=== PATIENT | male | born 1935 | race Caucasian/White ===

== ENCOUNTER 2018-10-03 09:34 | Inpatient (IN) | payer MEDICARE, OTHER, SELFPAY ==
[2018-10-03] VITALS (14 sets, daily range): BP systolic 90–141; BP diastolic 36–90; PULSE 66–125; RESP 15–18; TEMP 36.4–37.1; O2SAT 93–99; BMI 25.0; BMI 26.7
--- NOTE | 2018-10-03 10:05 | RAD_ITS ---
STUDY: X-RAY CHEST REASON FOR EXAM: Male, 83 years old. Shortness of breath. Increasing weakness. TECHNIQUE: Single AP portable view of the chest. COMPARISON: None. FINDINGS: EKG electrodes are seen. Hyperinflation. Blunting of the left cartilage thinning angle with minimal increased markings at the left lung base. Normal size heart. Normal mediastinum and albino. Normal visualized pulmonary arteries. There is atherosclerotic calcification of the aortic arch with tortuosity. Normal visualized thoracic spine. Normal visualized ribs, clavicles, and shoulders. There is no demonstrated abnormality of the visualized soft tissue structures of the upper abdomen. RAD/Chest 1 View (Portable) IMPRESSION: Hyperinflation. Blunting of the left costophrenic angle with mild increased markings at the left lung base suggestive of atelectasis. Electronically Signed: Shane Ogden, at 11:10 EDT , Service support ,
--- NOTE | 2018-10-03 10:05 | EKG12_ITS ---
Test Reason : CP Blood Pressure : / mmHG Vent. Rate : 076 BPM Atrial Rate : 075 BPM P-R Int : 000 ms QRS Dur : 114 ms QT Int : 382 ms P-R-T Axes : 000 036 035 degrees QTc Int : 429 ms Atrial fibrillation Abnormal ECG Confirmed by CARRIE KIRKPATRICK, MARZENA ([id number]), news video editor JAVIER KUMAR ([id number]) on 10/07/2018 6:30:56 AM Referred By: Sherron Martel Confirmed By:MARZENA BUTLER MD
[2018-10-03] MEDS: 0.9% Normal Saline 1,000 ML 150 ML IV (10:15)
[2018-10-03 10:22] LABS: Absolute Neutrophil Count 3.6 X10^3/uL (2.0-7.7); Basophil# 0.03 X10^3/uL; Basophil% 0.5 % (0-1); Eosinophil# 0.18 X10^3/uL; Eosinophils% 3.3 % (0-5); Hematocrit 43.8 % (40-54); Hemoglobin 15.1 g/dl (13.0-16.5); Lymphocyte % 23.5 % (19-41); Mean Corp Hgb Conc 34.5 g/gl (32-36); Mean Corpuscular Hgb 32.3 pg (27.0-32.0); Mean Corpuscular Volume 93.6 fL (80-94); Monocyte# 0.42 X10^3/uL; Monocyte% 7.6 % (0-10); Neutrophil # 3.59 X10^3/uL (2.7-7.7); Neutrophil % 64.9 % (47-70); Platelet Count 194 K/mm3 (150-450); RBC Distribution Width CV 12.9 % (11.6-14.6); RBC Distribution Width SD 43.8 fl (35.1-43.9); Red Blood Count 4.68 M/mm3 (4.6-6.2); White Blood Count 5.5 K/mm3 (4.4-11.0)
[2018-10-03 10:24] LABS: POSITIVE COUNT NO; POSITIVE DIFFERENTIAL NO; POSITIVE MORPHOLOGY NO
[2018-10-03 10:42] LABS: Anion Gap 9 (5-15); BUN 21 mg/dL (7-18); BUN/Creat Ratio 17.8 RATIO (10-20); Calcium,Total 8.7 mg/dL (8.5-10.1); Chloride 103 mmol/L (98-107); Creatinine, Serum 1.18 mg/dL (0.70-1.30); EST Glomerular Filtration Rate 63 mL/min (>60); Est Glom Filt Rate - Afr Amer 76 mL/min (>60); Estimated Creatinine Clearance 58.68 ml/min; Glucose 116 mg/dL (74-106); Potassium 3.6 mmol/L (3.5-5.1); Sodium Level 143 mmol/L (136-145); Thyroid Stim Hormone (TSH) 1.63 uIU/mL (0.358-3.74)
[2018-10-03 10:48] LABS: BNP,B-Type NATRIURETIC PEPTIDE 182.4 pg/mL (0-100)
--- NOTE | 2018-10-03 11:14 | ED.VISSUMM ---
- ER Visit Summary Date of Service: 10/03/18 Chief Complaint: Short of breath, weakness History of Present Illness: The patient is a 83 M with increasing shortness of breath and generalized weakness for the past 1 month. Last night he had a 15-minute episode of left shoulder pain that is currently resolved. Past history significant for Alzheimer's, GERD, hypertension, BPH, kidney stones. Physical Examination: Blood pressure is 90/36, temperature 97.6, heart rate 87, respiratory rate 16, pulse ox 93% on room air. Patient sitting upright in bed no acute distress. Heart is slightly irregular. Lung sounds are clear. Abdomen is soft and nontender. Test Results: EKG reveals atrial fibrillation with a rate of 76 bpm. No sign of acute ischemia. Both he and at bedside deny any history of A. fib. CBC is unremarkable. Chemistry studies normal. Troponin is 0.146. BNP 182. TSH is 1.63. Portable chest x-ray shows hyperinflation. Emergency Department Course and Treatment: Patient is given IV fluids. At this time blood pressure is 119/79, heart rate 79, respiratory rate 16. He is ordered a dose of Lovenox and will be given p.o. aspirin. Treatment Plan: [] Disposition: Admit Impression: 1. New onset A. fib 2. Elevated troponin This note was generated with [employer] dictation software. It may contain incorrect words, spelling, and punctuation that were not noted in review of the chart prior to signing ED Disposition - Plan for ED Patient: Referrals: Ruel Ivey MD [Primary Care Provider] -
[2018-10-03] MEDS: Enoxaparin 100 MG/ML Syringe 90 MG SC ×2 (11:32→21:57)
[2018-10-03] MEDS: Aspirin 81 MG TAB.CHEW 324 MG PO (11:32)
--- NOTE | 2018-10-03 12:25 | EKG12_ITS ---
Test Reason : CP ADMISSION Blood Pressure : / mmHG Vent. Rate : 066 BPM Atrial Rate : 072 BPM P-R Int : 000 ms QRS Dur : 114 ms QT Int : 420 ms P-R-T Axes : 000 027 013 degrees QTc Int : 440 ms Atrial fibrillation Abnormal ECG Confirmed by CARRIE KIRKPATRICK, MARZENA ([id number]), editor magazine JAVIER KUMAR ([id number]) on 10/07/2018 7:05:13 AM Referred By: Sherron Martel Confirmed By:MARZENA BUTLER MD
--- NOTE | 2018-10-03 12:25 | ECHOD_ITS ---
Reason For Study: Afib, Aflutter Procedure This was a 2D Doppler, Color Flow transthoracic echocardiogram. Exam performed portable in patient room. Left Ventricle Normal LV size. Mild concentric left ventricular hypertrophy. The estimated ejection fraction is 55 %. Unable to assess diastolic dysfunction due to arrhythmia. No regional wall motion abnormalities noted. Right Ventricle Normal RV size. Normal systolic function. Atria Normal left atrium. Normal right atrium. Bubble contrast study negative for right to left interatrial shunt. Mitral Valve Normal mitral valve. Mild (1+) eccentric mitral valve insufficiency. Tricuspid Valve Normal tricuspid valve. Mild tricuspid valve insufficiency. Pulmonary artery systolic pressure is 20 mmHg. Aortic Valve Trisinus/trileaflet aortic valve. Mild diffuse aortic valve thickening. Mild (1+) aortic valve insufficiency. Pulmonic Valve Normal pulmonic valve. Mild (1+) pulmonic valve insufficiency. Great Vessels Normal aortic root. The pulmonary artery is normal size. Normal inferior vena cava. Pericardium/Pleural No pericardial effusion. Medication Performed a rapid injection of agitated mix of 9 cc saline and 1cc air to assess for atrial septal defect. MMode/2D Measurements & Calculations LVIDd: 3.9 cm IVSd: 1.2 cm Ao root diam: 4.1 cm LVIDs: 2.9 cm LVPWd: 1.3 cm RVDd: 3.8 cm FS: 26.5 % LAV(MOD-bp): 57.7 ml LVAd ap4: 26.1 cm2 SV(MOD-sp4): 38.1 ml LAV(MOD-bp) Indexed: 25.8 ml/m2 EDV(MOD-sp4): 73.0 ml LAV(MOD-sp2): 63.6 ml EDV(sp4-el): 76.0 ml LAV(MOD-sp4): 51.9 ml LVAs ap4: 16.6 cm2 ESV(MOD-sp4): 34.8 ml ESV(sp4-el): 35.8 ml EF(MOD-sp4): 52.2 % EF(sp4-el): 52.9 % SV(sp4-el): 40.3 ml LA A4 area: 19.1 cm2 LA dimension(2D): 4.5 cm RA A4 area: 17.3 cm2 Doppler Measurements & Calculations MV E max remi: 88.3 cm/sec Ao V2 max: 130.4 cm/sec LV V1 max: 82.3 cm/sec Ao max P.8 mmHg LV V1 max P.7 mmHg Ao V2 mean: 92.6 cm/sec Ao mean P.7 mmHg Ao V2 VTI: 23.5 cm PA V2 max: 74.2 cm/sec TR max remi: 204.8 cm/sec TR max P.8 mmHg Interpretation Summary Normal LV size. Mild concentric left ventricular hypertrophy. The estimated ejection fraction is 55 %. Unable to assess diastolic dysfunction due to arrhythmia. Mild tricuspid valve insufficiency. Ordering Physician: Suad Martel Referring Physician: Ruel Ivey Performed By: Lili Barron, CHIP, RVT
--- NOTE | 2018-10-03 13:49 | HP.PCM_ITS ---
Problem List (1) Atrial fibrillation Status: Acute (2) Elevated troponin Status: Acute (3) Paresthesia of left foot Status: Chronic Comment: following lumbar surgery....also with Atrophy of the left calf. 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 Comment: following lumbar surgery (11) Late onset Alzheimer's disease without behavioral disturbance Status: Chronic History of Present Illness Date of Admission: 10/03/18 Chief Complaint: chest pain The patient is a 83 year old M with a past medical history of hypertension, late onset Alzheimer's disease, chronic back pain with history of lumbar surgery resulting in atrophy of the left calf and numbness of the left foot, nephro lithiasis, eczema, GERD, nasal polyp, BPH and prior smoking hx ( quit in 1983) who presented to the ED c/o being awoken from sleep last night with pain in the left shoulder and numbness in both hands. The pain lasted 15 minutes and then went away without tx. He additionally complains of feeling short of breath and this has been gradually increasing over several months. He has been getting short of breath when climbing the basement steps for at least 1 year per his . Recently he has been complaining of being weak and was unable to walk in the grocery store yesterday. Denies fevers, chills, nausea, diarrhea, cough, burning with urination. 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 He denies any history of coronary artery disease and also denies any history of VTE. He has been feeling lightheaded recently. Vital signs of presentation to the emergency room are temperature 97.6, pulse rate 87, blood pressure 90/36, respiratory rate 16 and he was 93% saturated on room air. Blood pressure improved with fluid bolus. CBC is unremarkable. BMP shows a potassium of 3.6 and a BUN of 21 with a creatinine of 1.18. Random blood sugar was 116. Troponin was elevated at 0.146 initially and the second troponin is 0.145. BNP is 182 and his TSH was normal at 1.63. Chest x-ray shows no cardiomegaly, no infiltrates, no pleural effusions and no pulmonary vascular congestion. There is hyperinflation present. EKG shows atrial fibrillation with controlled ventricular response and no suspicious ST or T wave changes. He is on metoprolol 50 mg p.o. twice daily as an outpatient. He is being admitted to a monitored bed on PCU and the chest pain protocol has been initiated. Will consult Dr. Forbes to participate in ma mitzi. Past Medical History Past Medical History (Chronic Problems): Chronic Problems Paresthesia of left foot (Chronic) following lumbar surgery....also with Atrophy of the left calf. 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) Allergies No Known Allergies Allergy (Verified 10/03/18 09:34) Home Medications: Ambulatory Orders Medication Instructions Recorded Aspirin [Aspirin EC] 81 mg PO DAILY 10/03/18 Donepezil HCl [Aricept] 10 mg PO QHS 10/03/18 Finasteride 5 mg PO DAILY 10/03/18 Fluticasone 0.05% [Flonase Nasal 2 spray NASAL DAILY 10/03/18 [place]] Hydrochlorothiazide 50 mg PO DAILY 10/03/18 Ibuprofen 1 tab PO TID PRN 10/03/18 Lisinopril 40 mg PO BID 10/03/18 Metoprolol Tartrate [Lopressor 50 mg PO BID 10/03/18 (beta vivian)] Polyethylene Glycol 3350 [Miralax] 17 gm PO DAILY 10/03/18 Ranitidine [Zantac] 150 mg PO QHS 10/03/18 Terazosin HCl 5 mg PO DAILY 10/03/18 cycloBENZAPRine HCl [Flexeril] 10 mg PO TID PRN PRN 10/03/18 Surgical History: - - lumbar laminectomy at L5, excision of throat polyps Psychiatric History: No pertinent psych hx Lives: Spouse/ Significant Other Smoking Status: Former smoker - quit in 1983 Tobacco Use: Non-smoker Alcohol: None Drugs: None - *Family History Sibling History Items: - - Alzheimer's disease and 2 of his brothers Maternal History Items: High Cholesterol, Hypertension Paternal History Items: Cancer - Laryngeal cancer in his father Review of Systems Constitutional: Reports: Weakness. Denies: Anorexia, Chills, Fever, Weight Change Eyes: Reports: - - Recently had bilateral cataract extraction HEENT: Denies: Head Aches, Sinus Congestion, Sinus Drainage, Sore Throat Cardiovascular: Reports: Light Headedness. Denies: Chest Pain, Chest Pressure, Chest Tightness, Edema, Orthopnea - Sleeps on one pillow at night and does not wake up short of breath, Palpitations, Paroxysmal Noc. Dyspnea, Syncope Respiratory: Denies: Cough, Shortness of breath at rest, Sputum production Gastrointestinal: Denies: Abdominal Pain, Diarrhea, Nausea, Vomiting Genitourinary: Denies: Dysuria Musculoskeletal: Denies: Joint Pain, Joint Tenderness, Neck Pain Skin: Denies: Jaundice, Rash, Wounds Neurological: Reports: Balance problems, Numbness - Chronic numbness in the left foot and numbness in both hands last evening with the onset of left shoulder pain.. Denies: Slurred speech, Focal weakness, Tingling, Tremor, Seizures Psychiatric: Denies: Anxiety, Depression, Homicidal Ideations, Suicidal Ideations Hematologic/ Lymphatic: Denies: Easy Bruising, Easy Bleeding, Hx of blood clot VTE Information - Inpt Only VTE Present on Admission: No VTE Mechan Device Prophylaxis: SCD's, Knee High MARY CAMREN Hose VTE Pharm Prophylaxis ordered?: No Reason prophylaxis not ordered:: Treatment Not Indicated - Patient was started on full dose Lovenox for atrial fibrillation Patient Problems: Active and Suspected Problems Atrial fibrillation (Acute) Elevated troponin (Acute) - Physical Exam General: Alert, Cooperative, No apparent distress, Well developed, Well nourished HEENT: Atraumatic, PERRLA, EOMI, Normocephalic Oral: Dry Mucosa, - - Poor dentition Neck: Supple, No JVD, Negative Carotid Bruits, No Nuchal Rigidity, Trachea Midline Lungs: Clear to auscultation Cardiovascular: Normal S1, Normal S2, No murmurs, Irregular Rate - irregular rhythm with a controlled VR, No rub noted, No Gallop Abdomen: Bowel Sounds Present, Soft, Non Tender, Non-Distended Extremities: No clubbing, No cyanosis, No edema, Diminished Peripheral Pulses, - - there is chronic atrophy of the Left lower leg due to nerve damage related to lumbar spine dz with hx of an L5 lumbar laminectomy Skin: No rashes, No breakdown Neurological: Cranial nerves II-XII grossly intact, Neuro grossly intact Vital Signs Temp Pulse Resp BP Pulse Ox 97.7 F L 72 18 139/86 H 97 10/03/18 12:42 10/03/18 12:42 10/03/18 12:42 10/03/18 12:42 10/03/18 13:41 Oxygen Delivery Method Room Air Weight: 208 lb 5.389 oz Body Mass Index (BMI) 26.7 Laboratory Tests Past 24 Hrs 10/03/18 10/03/18 10/03/18 10:12 10:12 10:12 WBC 5.5 RBC 4.68 Hgb 15.1 Hct 43.8 MCV 93.6 MCH 32.3 H MCHC 34.5 RDW 12.9 RDW Differential 43.8 Plt Count 194 MPV 10.0 Immature Gran % (Auto) 0.200 Neut % (Auto) 64.9 Lymph % (Auto) 23.5 [place] % (Auto) 7.6 Eos % (Auto) 3.3 Baso % (Auto) 0.5 Absolute Neuts (auto) 3.6 Absolute Lymphs (auto) 1.30 Total Counted Not Reportable Sodium 143 Potassium 3.6 Chloride 103 Carbon Dioxide 31.0 Anion Gap 9 BUN 21 H Creatinine 1.18 Estim Creat Clear Calc 58.68 Est GFR (MDRD) Af Amer 76 Est GFR (MDRD) Non-Af 63 BUN/Creatinine Ratio 17.8 Glucose 116 H Calcium 8.7 Magnesium Troponin I 0.146 H B-Natriuretic Peptide 182.4 H TSH 1.63 10/03/18 10/03/18 10:12 12:57 WBC RBC Hgb Hct MCV MCH MCHC RDW RDW Differential Plt Count MPV Immature Gran % (Auto) Neut % (Auto) Lymph % (Auto) [place] % (Auto) Eos % (Auto) Baso % (Auto) Absolute Neuts (auto) Absolute Lymphs (auto) Total Counted Sodium Potassium Chloride Carbon Dioxide Anion Gap BUN Creatinine Estim Creat Clear Calc Est GFR (MDRD) Af Amer Est GFR (MDRD) Non-Af BUN/Creatinine Ratio Glucose Calcium Magnesium 2.0 Troponin I 0.145 H B-Natriuretic Peptide TSH Assessment/Plan All Active Problems Atrial fibrillation (Acute) Elevated troponin (Acute) Impressions 1. new onset AF........may not be real recent 2. Left shoulder pain with numbness in both hands... Cardiac? or cervical disc dz or stenosis....kleber in light of the hx of lumbar disease? 3. generalized weakness and lightheadedness the past few days......suspect related to dehydration 4. clinical dehydration 5. HTN 6. Late onset Alzheimer's disease without behavioral disturbance 7. GERD 8. Chronic paresthesias left foot secondary to prior lumbar laminectomy and nerve damage 9. Atrophy of the left distal lower extremity secondary to prior nerve damage she had lumbar laminectomy 10. BPH Admit to a monitored bed on PCU ASA 81 mg PO daily SL NTG 0.4 mg PRN chest pain Serial Cardiac Enzymes Stat EKG PRN CP Chest XRAY Consult Dr. Forbes to participate in management Lovenox 90 mg subcu every 12 hours Echocardiogram today Venous ultrasounds of both lower extremities to rule out VTE as etiology of new onset atrial fibrillation Continue metoprolol 50 mg twice daily for rate control continue home medications except HCTZ.......will hold and hydrate Check orthostatics Code Visit Inpatient E&M: 94845 Init Hosp L3
--- NOTE | 2018-10-03 14:36 | VDLE_ITS ---
Reason For Study: Shortness of breath RIGHT LEFT Rt CFV and SFJ not visualized due to cath in GSV is normal. AM 10/04/18. CFV is compressible, spontaneous, phasic, GSV is normal. competent, and demonstrates normal FV is compressible, spontaneous, phasic, augmentation. competent and demonstrates normal FV is compressible, spontaneous, phasic, augmentation. competent and demonstrates normal POP V is compressible, spontaneous, phasic, augmentation. competent and demonstrates normal POP V is compressible, spontaneous, phasic, augmentation. competent and demonstrates normal T/P Trunk is compressible. augmentation. PTV is compressible. T/P Trunk is compressible. RT PerV is compressible. PTV is compressible. Procedure LT PerV is compressible. Exam performed portable in patient room. A preliminary report was called and/or faxed to PCU. Interpretation Summary Deep veins of the lower extremities are bilaterally patent and compressible segmentally. There is no evidence of deep vein thrombosis on either side. Valvular competence appears intact within the proximal deep venous systems bilaterally. The greater saphenous veins appear bilaterally patent and compressible segmentally. The right common femoral vein and sapheno-femoral junction were not visualized. Ordering Physician: Suad Martel Referring Physician: Ruel Ivey Performed By: Qiana Carpio RVT
--- NOTE | 2018-10-03 14:41 | CT_ITS ---
STUDY: CT BRAIN WITHOUT CONTRAST REASON FOR EXAM: Male, 83 years old. Confusion. Hypertension. RADIATION DOSAGE (If Supplied By Facility): CTDIvol = ( 44.99 ) mGy, DLP = ( 880.47 ) mGycm TECHNIQUE: Transaxial CT imaging of the brain was performed without administration of intravenous contrast material. Individualized dose optimization techniques were used for this CT. COMPARISON: No relevant priors. FINDINGS: There is no definite acute intracranial abnormality. There is diffuse mild symmetric atrophy. There is atrophy of the posterior fossa structures. There is diffuse small vessel ischemic disease of the white matter. There are stable bilateral lacunar infarcts. There is no definite acute infarct. There is no bleed. There is no gross mass, mass effect, or midline shift. There is no acute abnormality of the skull. No fractures. Grossly normal orbits. Moderate to marked diffuse chronic sinusitis. CT/Brain/Head without Contrast IMPRESSION: Chronic age related changes and atrophy. No acute intracranial abnormality. Electronically Signed: Howard Malone MD at 17:23 EDT , Service support ,
[2018-10-03] MEDS: 0.9% Normal Saline 1,000 ML 100 ML IV (16:19)
--- NOTE | 2018-10-03 16:54 | PCM.CONS.C ---
Reason for Consult Date of Consultation: 10/03/18 Reason for Consultation: Chest pain and abnormal cardiac enzymes History of Present Illness: The patient is a 83 year old M with a past medical history of hypertension, who presented to the ED c/o being awoken from sleep last night with pain in the left shoulder and numbness in both hands. The pain lasted 15 minutes and then went away without tx. He additionally complains of feeling short of breath and this has been gradually increasing over several months. He has been getting short of breath when climbing the basement steps for at least 1 year per his . Recently he has been complaining of being weak and was unable to walk in the grocery store yesterday. Denies fevers, chills, nausea, diarrhea, cough, burning with urination. 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 He denies any history of coronary artery disease and also denies any history of VTE. He has been feeling lightheaded recently. He presented to the emergency room and he was noted to be stable but blood work which was done demonstrated mildly abnormal troponin. EKG shows atrial fibrillation with controlled ventricular response and no suspicious ST or T wave changes. He is on metoprolol 50 mg p.o. twice daily as an outpatient. He was admitted to the progressive care unit and cardiology was consulted for further evaluation and management. Past Medical History Allergies/Adverse Reactions: Allergies No Known Allergies Allergy (Verified 10/03/18 09:34) Home Medications: Ambulatory Orders Medication Instructions Recorded Aspirin [Aspirin EC] 81 mg PO DAILY 10/03/18 Donepezil HCl [Aricept] 10 mg PO QHS 10/03/18 Finasteride 5 mg PO DAILY 10/03/18 Fluticasone 0.05% [Flonase Nasal 2 spray NASAL DAILY 10/03/18 Echo] Hydrochlorothiazide 50 mg PO DAILY 10/03/18 Ibuprofen 1 tab PO TID PRN 10/03/18 Lisinopril 40 mg PO BID 10/03/18 Metoprolol Tartrate [Lopressor 50 mg PO BID 10/03/18 (beta vivian)] Polyethylene Glycol 3350 [Miralax] 17 gm PO DAILY 10/03/18 Ranitidine [Zantac] 150 mg PO QHS 10/03/18 Terazosin HCl 5 mg PO DAILY 06/03/19 cycloBENZAPRine HCl [Flexeril] 10 mg PO BID PRN PRN 10/03/18 Past Medical History (Chronic Problems): Chronic Problems Paresthesia of left foot (Chronic) following lumbar surgery....also with Atrophy of the left calf. 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 Denies: Fever, Night Sweats HEENT: Denies: Vision Change Cardiovascular: Reports: Chest Discomfort at Rest, Shortness of Breath. Denies: Chest Discomfort, Orthopnea, PND, Peripheral Edema, Palpitations, Lightheadedness, Dizziness, Near Syncope, Syncope Respiratory: Denies: Cough, Sputum Production, Hemoptysis Gastrointestinal: Denies: Hematemesis, Hematochezia, Melena Genitourinary: Denies: Dysuria, Hematuria Muscoloskeletal: Denies: Myalgias Skin: Denies: Rash Neurological: Denies: Dizziness Psychiatric: Denies: Anxiety Endocrine: Denies: Unexplained Weight Loss Hematologic/ Lymphatic: Denies: Anemia Subjectve: Pleasant man in no apparent distress Objective: Vital Signs Temp Pulse Resp BP Pulse Ox 97.7 F L 79 18 141/90 H 95 10/03/18 16:33 10/03/18 16:33 10/03/18 16:33 10/03/18 16:33 10/03/18 16:33 Oxygen Delivery Method Room Air Weight: 208 lb 5.389 oz Body Mass Index (BMI) 26.7 General: Awake, Alert, Oriented x 3 HEENT: PERRL, EOMI, Sclera Non Icteric Neck: Supple, Good ROM, No Lymph Node Enlargement Lungs: Clear to auscultation Cardiovascular: Irregular Rhythm, Normal S1, Normal S2, No Murmurs, No Rubs, No Gallops Vascular: No Carotid Bruits, Normal Femoral Pulses, Normal Radial Pulses, Normal Dorsalis Pedal Pulse, Normal Posterior Tibial Pulses Abdomen: Bowel Sounds Present, Soft, Non Tender, No HSM, No Organomegaly Extremities: No Cyanosis, No Clubbing, No edema Musculoskeletal: No Erythema Skin: No Rashes Lymphatic: No Lymph Node Enlargement Neurological: No Focal Motor or Sensory Deficit Psych/Mental Status: Appropriate 10/03/18 10:12: WBC 5.5, RBC 4.68, Hgb 15.1, Hct 43.8, MCV 93.6, MCH 32.3 H, MCHC 34.5, RDW 12.9, RDW Differential 43.8, Plt Count 194, MPV 10.0, Immature Gran % (Auto) 0.200, Neut % (Auto) 64.9, Lymph % (Auto) 23.5, [place] % (Auto) 7.6, Eos % (Auto) 3.3, Baso % (Auto) 0.5, Absolute Neuts (auto) 3.6, Total Counted Not Reportable 10/03/18 10:12: Sodium 143, Potassium 3.6, Chloride 103, Carbon Dioxide 31.0, Anion Gap 9, BUN 21 H, Creatinine 1.18, Est GFR (MDRD) Af Amer 76, Est GFR (MDRD) Non-Af 63, BUN/Creatinine Ratio 17.8, Glucose 116 H, Calcium 8.7, Troponin I 0.146 H 10/03/18 10:12: B-Natriuretic Peptide 182.4 H 10/03/18 10:12: Magnesium 2.0 10/03/18 12:57: Troponin I 0.145 H Rhythm: EKG: Atrial fibrillation with a controlled ventricular response rate no acute changes ECHO: Estimated ejection fraction of 55% with no obvious wall motion abnormalities Assessment/Plan 1. Chest pain Patient presents with chest discomfort which woke him up from sleep. The above is associated with a mildly abnormal cardiac troponin enzymes and this is concerning. I would recommend that we pursue the above especially in light of his age with a cardiac catheterization. The risk benefits and alternatives have been explained to him he understands and agrees to proceed. We will continue aspirin and beta-vivian We will load up with clopidogrel at this time 2. Hypertension Blood pressure appears to be fairly well controlled on the current medical therapy 3. Atrial fibrillation The duration of the above is unclear but his response rate is controlled I would wait until he has undergone the cardiac catheterization before deciding on anticoagulation. He however appears to have an elevated enough chads score to warrant long-term anticoagulation. 4. Shortness of breath He does have evidence of mild congestive heart failure likely secondary to the atrial fibrillation. His echocardiogram demonstrated preserved ejection fraction. Thank you for allowing me to participate in the care of your patient. Please don't hesitate to call if any issues arise
--- NOTE | 2018-10-03 17:01 | CON.PCM_ITS ---
Reason for Consult Date of Consultation: 10/03/18 Reason for Consultation: Chest pain and abnormal cardiac enzymes History of Present Illness: The patient is a 83 year old M with a past medical history of hypertension, who presented to the ED c/o being awoken from sleep last night with pain in the left shoulder and numbness in both hands. The pain lasted 15 minutes and then went away without tx. He additionally complains of feeling short of breath and this has been gradually increasing over several months. He has been getting short of breath when climbing the basement steps for at least 1 year per his . Recently he has been complaining of being weak and was unable to walk in the grocery store yesterday. Denies fevers, chills, nausea, diarrhea, cough, burning with urination. 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 He denies any history of coronary artery disease and also denies any history of VTE. He has been feeling lightheaded recently. He presented to the emergency room and he was noted to be stable but blood work which was done demonstrated mildly abnormal troponin. EKG shows atrial fibrillation with controlled ventricular response and no suspicious ST or T wave changes. He is on metoprolol 50 mg p.o. twice daily as an outpatient. He was admitted to the progressive care unit and cardiology was consulted for further evaluation and management. Past Medical History Allergies/Adverse Reactions: Allergies No Known Allergies Allergy (Verified 10/03/18 09:34) Home Medications: Ambulatory Orders Medication Instructions Recorded Aspirin [Aspirin EC] 81 mg PO DAILY 10/03/18 Donepezil HCl [Aricept] 10 mg PO QHS 10/03/18 Finasteride 5 mg PO DAILY 10/03/18 Fluticasone 0.05% [Flonase Nasal 2 spray NASAL DAILY 10/03/18 [place]] Hydrochlorothiazide 50 mg PO DAILY 10/03/18 Ibuprofen 1 tab PO TID PRN 10/03/18 Lisinopril 40 mg PO BID 10/03/18 Metoprolol Tartrate [Lopressor 50 mg PO BID 10/03/18 (beta vivian)] Polyethylene Glycol 3350 [Miralax] 17 gm PO DAILY 10/03/18 Ranitidine [Zantac] 150 mg PO QHS 10/03/18 Terazosin HCl 5 mg PO DAILY 06/03/19 cycloBENZAPRine HCl [Flexeril] 10 mg PO BID PRN PRN 10/03/18 Past Medical History (Chronic Problems): Chronic Problems Paresthesia of left foot (Chronic) following lumbar surgery....also with Atrophy of the left calf. 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 Denies: Fever, Night Sweats HEENT: Denies: Vision Change Cardiovascular: Reports: Chest Discomfort at Rest, Shortness of Breath. Denies: Chest Discomfort, Orthopnea, PND, Peripheral Edema, Palpitations, Lightheadedness, Dizziness, Near Syncope, Syncope Respiratory: Denies: Cough, Sputum Production, Hemoptysis Gastrointestinal: Denies: Hematemesis, Hematochezia, Melena Genitourinary: Denies: Dysuria, Hematuria Muscoloskeletal: Denies: Myalgias Skin: Denies: Rash Neurological: Denies: Dizziness Psychiatric: Denies: Anxiety Endocrine: Denies: Unexplained Weight Loss Hematologic/ Lymphatic: Denies: Anemia Subjectve: Pleasant man in no apparent distress Objective: Vital Signs Temp Pulse Resp BP Pulse Ox 97.7 F L 79 18 141/90 H 95 10/03/18 16:33 10/03/18 16:33 10/03/18 16:33 10/03/18 16:33 10/03/18 16:33 Oxygen Delivery Method Room Air Weight: 208 lb 5.389 oz Body Mass Index (BMI) 26.7 General: Awake, Alert, Oriented x 3 HEENT: PERRL, EOMI, Sclera Non Icteric Neck: Supple, Good ROM, No Lymph Node Enlargement Lungs: Clear to auscultation Cardiovascular: Irregular Rhythm, Normal S1, Normal S2, No Murmurs, No Rubs, No Gallops Vascular: No Carotid Bruits, Normal Femoral Pulses, Normal Radial Pulses, Normal Dorsalis Pedal Pulse, Normal Posterior Tibial Pulses Abdomen: Bowel Sounds Present, Soft, Non Tender, No HSM, No Organomegaly Extremities: No Cyanosis, No Clubbing, No edema Musculoskeletal: No Erythema Skin: No Rashes Lymphatic: No Lymph Node Enlargement Neurological: No Focal Motor or Sensory Deficit Psych/Mental Status: Appropriate 10/03/18 10:12: WBC 5.5, RBC 4.68, Hgb 15.1, Hct 43.8, MCV 93.6, MCH 32.3 H, MCHC 34.5, RDW 12.9, RDW Differential 43.8, Plt Count 194, MPV 10.0, Immature Gran % (Auto) 0.200, Neut % (Auto) 64.9, Lymph % (Auto) 23.5, [place] % (Auto) 7.6, Eos % (Auto) 3.3, Baso % (Auto) 0.5, Absolute Neuts (auto) 3.6, Total Counted Not Reportable 10/03/18 10:12: Sodium 143, Potassium 3.6, Chloride 103, Carbon Dioxide 31.0, Anion Gap 9, BUN 21 H, Creatinine 1.18, Est GFR (MDRD) Af Amer 76, Est GFR (MDRD) Non-Af 63, BUN/Creatinine Ratio 17.8, Glucose 116 H, Calcium 8.7, Troponin I 0.146 H 10/03/18 10:12: B-Natriuretic Peptide 182.4 H 10/03/18 10:12: Magnesium 2.0 10/03/18 12:57: Troponin I 0.145 H Rhythm: EKG: Atrial fibrillation with a controlled ventricular response rate no acute c hanges ECHO: Estimated ejection fraction of 55% with no obvious wall motion abnormalities Assessment/Plan 1. Chest pain * Patient presents with chest discomfort which woke him up from sleep. The above is associated with a mildly abnormal cardiac troponin enzymes and this is concerning. I would recommend that we pursue the above especially in light of his age with a cardiac catheterization. The risk benefits and alternatives have been explained to him he understands and agrees to proceed. We will continue aspirin and beta-vivian * We will load up with clopidogrel at this time * 2. Hypertension * Blood pressure appears to be fairly well controlled on the current medical therapy * 3. Atrial fibrillation * The duration of the above is unclear but his response rate is controlled I would wait until he has undergone the cardiac catheterization before deciding on anticoagulation. He however appears to have an elevated enough chads score to warrant long-term anticoagulation. * 4. Shortness of breath * He does have evidence of mild congestive heart failure likely secondary to the atrial fibrillation. * His echocardiogram demonstrated preserved ejection fraction. * Thank you for allowing me to participate in the care of your patient. Please don't hesitate to call if any issues arise
[2018-10-03] MEDS: Clopidogrel Bisulfate 300 MG Tablet PO (17:45)
[2018-10-03] MEDS: Metoprolol Tartrate 50 MG Tablet PO (21:56)
[2018-10-03] MEDS: Famotidine 20 MG Tablet PO (21:56)
[2018-10-03] MEDS: Donepezil HCl 10 MG Tablet PO (21:56)
[2018-10-04] VITALS (14 sets, daily range): BP systolic 119–147; BP diastolic 74–98; PULSE 71–105; RESP 16; TEMP 36.5–36.8; O2SAT 93–95
[2018-10-04 01:30] LABS: Bacteria 0 SEEN /hpf (None Seen); Mucous, Urine 0 SEEN /hpf (<or=2+); Squamous Epithelial Cells - UA 0 SEEN /hpf (0-5); White Blood Cells 0 SEEN /hpf (0-5)
[2018-10-04 01:33] LABS: Color, Urine Yellow (Yellow); Glucose, Dipstick Normal (Normal); Ketone-Dipstick Negative (Negative); Leukocyte Esterase-Dipstick Negative /ul (Negative); Nitrite-Dipstick Negative (Negative); Occult Blood-Urine 150 /ul (Negative); Protein-Dipstick Negative (Negative); Specific Gravity, Urine 1.015 (1.002-1.030); Urine Bilirubin Dipstick Negative (Negative); Urine Clarity Clear (Clear); Urine Urobilinogen Normal (Normal)
[2018-10-04 01:43] LABS: Red Blood Cells-Urine 0-5 SEEN /hpf (0-5)
[2018-10-04] MEDS: Metoprolol Tartrate 50 MG Tablet PO (05:40)
[2018-10-04] MEDS: Aspirin E.C. 81 MG Tablet PO (05:41)
[2018-10-04] MEDS: Lisinopril 40 MG Tablet PO (05:41)
[2018-10-04] MEDS: 0.9% Normal Saline 1,000 ML 15 ML IV (05:41)
[2018-10-04] MEDS: Clopidogrel Bisulfate 75 MG Tablet PO (05:41)
[2018-10-04 05:45] LABS: Absolute Lymphocyte Count 1.53 X10^3/ul (0.83-4.51); Absolute Neutrophil Count 2.5 X10^3/uL (2.0-7.7); Basophil# 0.04 X10^3/uL; Basophil% 0.8 % (0-1); Eosinophil# 0.28 X10^3/uL; Eosinophils% 5.9 % (0-5); Hematocrit 43.9 % (40-54); Lymphocyte # 1.53 X10^3/ul (4.0); Lymphocyte % 32.3 % (19-41); Mean Corp Hgb Conc 34.2 g/gl (32-36); Mean Corpuscular Hgb 32.3 pg (27.0-32.0); Mean Corpuscular Volume 94.4 fL (80-94); Mean Platelet Vol. 9.8 fl (6.2-12.0); Monocyte# 0.38 X10^3/uL; Neutrophil % 52.8 % (47-70); Platelet Count 180 K/mm3 (150-450); RBC Distribution Width CV 12.9 % (11.6-14.6); RBC Distribution Width SD 44.1 fl (35.1-43.9); Red Blood Count 4.65 M/mm3 (4.6-6.2); White Blood Count 4.7 K/mm3 (4.4-11.0)
[2018-10-04 05:47] LABS: POSITIVE COUNT NO; POSITIVE DIFFERENTIAL NO; POSITIVE MORPHOLOGY NO
--- NOTE | 2018-10-04 05:55 | EKG12_ITS ---
Test Reason : AM EKG Blood Pressure : / mmHG Vent. Rate : 080 BPM Atrial Rate : 085 BPM P-R Int : 000 ms QRS Dur : 106 ms QT Int : 388 ms P-R-T Axes : 000 040 017 degrees QTc Int : 447 ms Atrial fibrillation with premature ventricular or aberrantly conducted complexes Abnormal ECG Confirmed by CARRIE KIRKPATRICK, MARZENA ([id number]), writer editor JAVIER KUMAR ([id number]) on 10/07/2018 7:08:06 AM Referred By: Sherron Martel Confirmed By:MARZENA BUTLER MD
[2018-10-04 06:03] LABS: AST(SGOT) 13 U/L (15-37); Alanine Aminotransfer ALT/SGPT 17 U/L (16-61); Albumin, Serum 2.9 g/dL (3.2-5.0); Alkaline Phosphatase 55 U/L (45-117); Anion Gap 6 (5-15); BUN 16 mg/dL (7-18); BUN/Creat Ratio 16.6 RATIO (10-20); Bilirubin, Direct 0.17 mg/dL (0.00-0.30); Calcium,Total 8.5 mg/dL (8.5-10.1); Chloride 107 mmol/L (98-107); Creatinine, Serum 0.96 mg/dL (0.70-1.30); EST Glomerular Filtration Rate 80 mL/min (>60); Est Glom Filt Rate - Afr Amer 96 mL/min (>60); Estimated Creatinine Clearance 70.16 ml/min; Globulin 2.7 g/dL (2.2-4.2); Glucose 91 mg/dL (74-106); Potassium 3.8 mmol/L (3.5-5.1); Protein, Total 5.6 g/dL (6.4-8.2); Sodium Level 145 mmol/L (136-145)
[2018-10-04 06:05] LABS: International Normalized Ratio 1.2; Prothrombin Time (Protime)PT. 14.6 SECONDS (11.7-14.9)
[2018-10-04 06:06] LABS: Partial Thromboplast Time 42.2 Seconds (24.1-36.2)
--- NOTE | 2018-10-04 07:57 | PN.CARD_ITS ---
Subjectve: Patient seen and evaluated. Appears to be doing well. Underwent cardiac catheterization this morning. Objective: Vital Signs Temp Pulse Resp BP Pulse Ox 98.0 F 85 16 147/90 H 94 10/04/18 03:30 10/04/18 07:05 10/04/18 03:30 10/04/18 05:34 10/04/18 03:30 Oxygen Delivery Method Room Air Weight: 208 lb 5.389 oz Body Mass Index (BMI) 26.7 Orthostatic Vital Signs Start: 10/03/18 17:27 Freq: 0600 Status: Active Protocol: Activity Type Activity Date Activity User E-Sign Co-Sign Detail Recorded Client Recorded Date Recorded By Document 10/04/18 05:34 CM [id number] 10/04/18 05:37 CM 10/04/18 05:34 Orthostatic Vitals Standing -Blood Pressure (90/60-120/80) 129/84 H -Extremity Use Right Arm -Pulse Rate (60-100) 98 Sitting -Blood Pressure (90/60-120/80) 136/79 H -Extremity Use Right Arm -Pulse Rate (60-100) 105 H Lying -Blood Pressure (90/60-120/80) 147/90 H -Extremity Use Right Arm -Pulse Rate (60-100) 74 Intake and Output for Last 24 Hours 10/02/18 10/03/18 10/04/18 23:59 23:59 23:59 Intake Total 1830 / 1830 440 / 440 Balance 1830 / 1830 440 / 440 General: Awake, Alert, Oriented x 3 HEENT: PERRL, EOMI, Sclera Non Icteric Neck: Supple, Good ROM, No Lymph Node Enlargement Lungs: Clear to auscultation Cardiovascular: Irregular Rhythm, Normal S1, Normal S2, No Murmurs, No Rubs, No Gallops Vascular: No Carotid Bruits, Normal Femoral Pulses, Normal Radial Pulses, Normal Dorsalis Pedal Pulse, Normal Posterior Tibial Pulses Abdomen: Bowel Sounds Present, Soft, Non Tender, No HSM, No Organomegaly Extremities: No Cyanosis, No Clubbing, No edema Musculoskeletal: No Erythema Skin: No Rashes Lymphatic: No Lymph Node Enlargement Neurological: No Focal Motor or Sensory Deficit Psych/Mental Status: Appropriate 10/03/18 10:12: WBC 5.5, RBC 4.68, Hgb 15.1, Hct 43.8, MCV 93.6, MCH 32.3 H, MCHC 34.5, RDW 12.9, RDW Differential 43.8, Plt Count 194, MPV 10.0, Immature Gran % (Auto) 0.200, Neut % (Auto) 64.9, Lymph % (Auto) 23.5, [place] % (Auto) 7.6, Eos % (Auto) 3.3, Baso % (Auto) 0.5, Absolute Neuts (auto) 3.6, Total Counted Not Reportable 10/03/18 10:12: Sodium 143, Potassium 3.6, Chloride 103, Carbon Dioxide 31.0, Anion Gap 9, BUN 21 H, Creatinine 1.18, Est GFR (MDRD) Af Amer 76, Est GFR (MDRD) Non-Af 63, BUN/Creatinine Ratio 17.8, Glucose 116 H, Calcium 8.7, Troponin I 0.146 H 10/03/18 10:12: B-Natriuretic Peptide 182.4 H 10/03/18 10:12: Magnesium 2.0 10/03/18 12:57: Troponin I 0.145 H 10/03/18 16:20: Troponin I 0.126 H 10/04/18 01:20: Urine Color Yellow, Urine Clarity Clear, Urine pH 7.0, Ur Specific Stamps 1.015, Urine Protein Negative, Urine Glucose (UA) Normal, Urine Ketones Negative, Urine Occult Blood 150 H, Urine Nitrite Negative, Urine Bilirubin Negative, Urine Urobilinogen Normal, Ur Leukocyte Esterase Negative, Urine RBC 0-5 SEEN, Urine WBC 0 SEEN 10/04/18 05:25: Sodium 145, Potassium 3.8, Chloride 107, Carbon Dioxide 32.0, Anion Gap 6, BUN 16, Creatinine 0.96, Est GFR (MDRD) Af Amer 96, Est GFR (MDRD) Non-Af 80, BUN/Creatinine Ratio 16.6, Glucose 91, Calcium 8.5, Total Bilirubin 0.80, Direct Bilirubin 0.17 10/04/18 05:25: WBC 4.7, RBC 4.65, Hgb 15.0, Hct 43.9, MCV 94.4 H, MCH 32.3 H, MCHC 34.2, RDW 12.9, RDW Differential 44.1 H, Plt Count 180, MPV 9.8, Immature Gran % (Auto) 0.200, Neut % (Auto) 52.8, Lymph % (Auto) 32.3, [place] % (Auto) 8.0, Eos % (Auto) 5.9 H, Baso % (Auto) 0.8, Absolute Neuts (auto) 2.5, Total Counted Not Reportable 10/04/18 05:25: PT 14.6, INR 1.2, APTT 42.2 H Medical Necessity - Tobacco Use Smoking Status: Former smoker Tobacco Use: Non-smoker Assessment/Plan 1. Chest pain * Patient presents with chest discomfort which woke him up from sleep. 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 He also had preserved ejection fraction. Based on the above angiographic findings it does not appear that this is responsible for his chest pain. * We will continue to manage him medically and discharge him and follow him as an outpatient. 2. Hypertension * Blood pressure appears to be fairly well controlled on the current medical therapy * 3. Atrial fibrillation * Will recommend anticoagulation with apixaban upon discharge 4. Shortness of breath * He does have evidence of mild congestive heart failure likely secondary to the atrial fibrillation. * His echocardiogram demonstrated preserved ejection fraction. * Thank you for allowing me to participate in the care of your patient. Please don't hesitate to call if any issues arise patient can follow-up with me in 4 to 6 weeks in my office.
--- NOTE | 2018-10-04 08:32 | CL.D_ITS ---
Patient Name: ROEL CHAU Study Date: 10/04/2018 Performing: Elvis Forebs MD Ht: 74 inches 188 cm : 1935 Wt: 209.7 lbs 95 kg Age: 83 Gender: male BSA: 2.22 PROCEDURE(S) PERFORMED [id number] CLINICAL PROFILE AND INDICATIONS Indications: Suspected CAD Heart Failure: NYHA Class: 2, Newly Diagnosed: Yes, Heart Failure Type: Diastolic Stress/Imaging Stress/Image Study Performed: No CAD Presentations: Unstable angina. CONCLUSIONS Mild CAD RECOMMENDATIONS Medical therapy DESCRIPTION OF PROCEDURE The patient arrived to the procedure lab. The risks and benefits of the procedure as well as a full d escription of our services here and current unavailability of surgical backup were fully explained to the patient and/or their significant other prior to the catheterization. The Timeout was completed, verifying the correct patient and procedure. The patient's procedural site was prepped and draped in the usual fashion. Local anesthetic was given subcutaneously to right groin region with Lidocaine 2%. Using a modified Seldinger technique, arterial access was obtained via the right femoral artery, a 5 Fr sheath was inserted. Left Coronary Artery selective angiography was performed in multiple views u sing a 5 Fr. JL4 catheter. Right Coronary Artery selective angiography was then performed in multiple views using a 5 Fr. 3DRC (Omero) catheter. Left Ventriculography was performed in MARROQUIN projection using a 5 Fr. Pigtail catheter. LV to AO pullback pressures were then recorded.Contrast was injected through the sheath and the Right Iliac and Femoral artery were assessed for possible daniel sure device.The arterial sheath was pulled and a Mynx closure device was deployed for hemostasis CORONARY ANGIOGRAPHY DOMINANCE: Right Dominant LEFT HEART ASSESSMENT Left Ventricular Ejection Fraction: by LV Gram 60 % Normal LV wall motion Normal Left Ventricular systolic function LEFT MAIN: Angiographically normal LEFT ANTERIOR DESCENDING ARTERY: Mild luminal irregularities less than 30% CIRCUMFLEX ARTERY: No significant disease noted RIGHT CORONARY ARTERY: Mild luminal irregularities less than 30% COMPLICATIONS No Complications PROCEDURE MEDICATIONS Versed 1 mg IV Oxygen: 2 L/min via nasal cannula SUMMARY OF HEMODYNAMIC DATA Time AIR REST ECG 07:21:22 AO 154/94 (118) SA 07:38:12 LV 155/8, 10 07:46:01 LV 151/7, 11 07:46:08 LV 150/8, 12 07:46:42 LVp 146/6, 10 07:46:46 AO 139/86 (111) 07:46:51 Signed By Elvis Forbes MD On 10/04/2018 8:31:54 AM Elvis Forbes MD
[2018-10-04] MEDS: Finasteride 5 MG Tablet PO (09:07)
[2018-10-04] MEDS: Famotidine 20 MG Tablet PO (09:07)
--- NOTE | 2018-10-04 10:08 | CASEMGMT ---
[facility] assessment: Face to Face with patient for initial transition planning/care coordination assessment. [facility] introduced self and role at [facility], pt voices understanding and consents to assessment at this time. Pt is lying in bed in no distress at this time. Pt is A/Ox4 at this time and answers all questions appropriately at this time. Pt's ex- is at bedside during assessment and assists with questions at this time. Care providers, pharmacy, and demographics verified at this time. PCP: Loni Specialists: Pt states no current specialists. Preferred Pharmacy: [facility] Insurance: [facility] A/B, G[employer] life Prescription Benefit: [employer] Living Will/HPOA: Pt states has LW but not HPOA and is aware that it is not on file at [facility] at this time. LNOK: Lilia Thomson, ex- Living Arrangements: Pt lives with ex-, Lilia, in 1 story home with 1 step in and states no concerns at home at this time. Pt states is independent with ADL's. Transportation: Pt states drives self and states no transportation concerns at this time. DME/HHC: Pt states has a cane, grab bars, and shower chair. Pt states no need for any further DME at this time. Pt state no hx of HHC or SNF in the past. Pt states no concerns with going home at time of discharge. Pt is retired. Pt states does not smoke or drink ETOH. Pt states no further questions/concerns/needs at this time. CM to follow for any further discharge planning/needs. Advised pt to ask for CM if any further questions/concerns/needs arise, voices understanding. Pt Goal: Home Plan: [place] [facility]
--- NOTE | 2018-10-04 13:10 | NURSING ---
Bedrest complete. Walked patient in hallway. Tolerated well. Dressing C/D/I
--- NOTE | 2018-10-04 13:53 | PCM.DC ---
- Discharge Diagnoses Current Active Problems: Current Active and Chronic Problems Atrial fibrillation (Acute) Elevated troponin (Acute) Paresthesia of left foot (Chronic) following lumbar surgery....also with Atrophy of the left calf. 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) You will use the following diet at home:: Cardiac - low fat and low salt Your food should be the consistency of: Regular Your liquids should be the consistency of: Regular/Thin Discharge Activity: Return to Normal Activity Call your doctor if your incision/area has: Continuous Slow Oozing, Sudden Increased Bleeding, Increased Redness Call your doctor if you observe: Fever of 101 or Higher, Shortness of breath, Dizziness, Fainting spells, Swelling in the ankles, Chest pain Instructions: What Is Atrial Flutter/Atrial Fibrillation?, Discharge Instructions for Atrial Fibrillation, Apixaban Oral tablet Additional Instructions: 1. The heart catheterization shows that there is no significant coronary artery disease. I do not know why you had pain in the left shoulder...you may have slept on it wrong and pinched a nerve. If it happens again talk to your PCP. 2. You have developed a problem with the rhythm of your heart called atrial fibrillation. your heart beats irregularly and this is a risk factor for strokes. Therefore you are being started on a blood thinner called Apixaban to help prevent strokes. You will take this medication every 12 hours. If you get a cut you will bleed more so hold pressure on it for 10 minutes with no peeking. You will no longer be able to take Motrin because it can cause bleeding in your stomach when you are on a blood thinner. You may take Acetaminophen or Tylenol for pain. It is OK to continue to take 1 baby aspirin a day. 3. Dr. Forbes wants you to be on Lasix because you had some fluid build up in the lungs.........Lasix is a water pill and you will take it once a day in the morning. You can STOP the HCTZ ( hydrocholrothiazide). Your doctor should check some lab in one week to make sure the potassium and the kidney function are within normal limits. 4. I started you on Flomax and you will take this once a day at bedtime. this will help with the prostate problem. Allergies/Adverse Reactions: Allergies No Known Allergies Allergy (Verified 10/03/18 09:34) Medications to take at Discharge Aspirin [Aspirin EC] 81 mg PO DAILY 10/03/18 Donepezil HCl [Aricept] 10 mg PO QHS 10/03/18 Finasteride 5 mg PO DAILY 10/03/18 Fluticasone 0.05% [Flonase Nasal [place]] 2 spray NASAL DAILY 10/03/18 Ibuprofen 1 tab PO TID PRN 10/03/18 Lisinopril 40 mg PO BID 10/03/18 Metoprolol Tartrate [Lopressor (beta vivian)] 50 mg PO BID 10/03/18 Polyethylene Glycol 3350 [Miralax] 17 gm PO DAILY 10/03/18 Ranitidine [Zantac] 150 mg PO QHS 10/03/18 Terazosin HCl 5 mg PO DAILY 10/03/18 cycloBENZAPRine HCl [Flexeril] 10 mg PO BID PRN PRN 10/03/18 Apixaban [Eliquis] 5 mg PO BID #60 tablet 10/04/18 Furosemide [Lasix] 40 mg PO DAILY #30 tablet 10/04/18 Tamsulosin HCl [Flomax] 0.4 mg PO QHS #30 capsule 10/04/18 The following prescriptions were given: Furosemide [Lasix] 40 mg PO DAILY #30 tablet Tamsulosin HCl [Flomax] 0.4 mg PO QHS #30 capsule Apixaban [Eliquis] 5 mg PO BID #60 tablet Primary Care Physician: Ruel Ivey MD [Primary Care Provider] - Please follow up with your Primary Care Physician in: 5-7 days Test Results: Test results from this visit will be discussed in further detail at your follow-up appointment, if applicable. Please Follow Up With: Elvis Forbes MD When: 4-6 weeks
--- NOTE | 2018-10-04 14:10 | PCM.DC.SUM ---
Discharge Date and Diagnosis - Problem List Patient Problems: Active and Suspected Problems Diastolic CHF (Acute) Date of Admission: 10/03/18 Date of Discharge: 10/04/18 - Primary Discharge Diagnosis Active and Suspected Problems Left shoulder pain with elevated troponin and paresthesias in both hands Diastolic CHF (Acute) - mild Atrial fibrillation (Acute) Elevated troponin (Acute) - Secondary Discharge Diagnosis Chronic Problems Paresthesia of left foot (Chronic) following lumbar surgery....also with Atrophy of the left calf. 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 Blunting of the left costophrenic angle with mild increased markings at the left lung base suggestive of atelectasis. Electronically Signed: Shane Ogden at 11:10 EDT , Service support , Brain CT 10/03/18 14:41 IMPRESSION: Chronic age related changes and atrophy. No acute intracranial abnormality. Electronically Signed: Howard Malone MD at 17:23 EDT , Service support , Laboratory Results - last 24 hr 10/03/18 10/04/18 10/04/18 16:20 01:20 05:25 WBC RBC Hgb Hct MCV MCH MCHC RDW RDW Differential Plt Count MPV Immature Gran % (Auto) Neut % (Auto) Lymph % (Auto) [place] % (Auto) Eos % (Auto) Baso % (Auto) Absolute Neuts (auto) Absolute Lymphs (auto) Total Counted PT INR APTT Sodium 145 Potassium 3.8 Chloride 107 Carbon Dioxide 32.0 Anion Gap 6 BUN 16 Creatinine 0.96 Estim Creat Clear Calc 70.16 Est GFR (MDRD) Af Amer 96 Est GFR (MDRD) Non-Af 80 BUN/Creatinine Ratio 16.6 Glucose 91 Calcium 8.5 Total Bilirubin 0.80 Direct Bilirubin 0.17 AST 13 L ALT 17 Alkaline Phosphatase 55 Troponin I 0.126 H Total Protein 5.6 L Albumin 2.9 L Globulin 2.7 Urine Color Yellow Urine Clarity Clear Urine pH 7.0 Ur Specific [place] 1.015 Urine Protein Negative Urine Glucose (UA) Normal Urine Ketones Negative Urine Occult Blood 150 H Urine Nitrite Negative Urine Bilirubin Negative Urine Urobilinogen Normal Ur Leukocyte Esterase Negative Urine RBC 0-5 SEEN Urine WBC 0 SEEN Ur Squamous Epith Cells 0 SEEN Urine Bacteria 0 SEEN Urine Mucus 0 SEEN 10/04/18 10/04/18 05:25 05:25 WBC 4.7 RBC 4.65 Hgb 15.0 Hct 43.9 MCV 94.4 H MCH 32.3 H MCHC 34.2 RDW 12.9 RDW Differential 44.1 H Plt Count 180 MPV 9.8 Immature Gran % (Auto) 0.200 Neut % (Auto) 52.8 Lymph % (Auto) 32.3 [place] % (Auto) 8.0 Eos % (Auto) 5.9 H Baso % (Auto) 0.8 Absolute Neuts (auto) 2.5 Absolute Lymphs (auto) 1.53 Total Counted Not Reportable PT 14.6 INR 1.2 APTT 42.2 H Sodium Potassium Chloride Carbon Dioxide Anion Gap BUN Creatinine Estim Creat Clear Calc Est GFR (MDRD) Af Amer Est GFR (MDRD) Non-Af BUN/Creatinine Ratio Glucose Calcium Total Bilirubin Direct Bilirubin AST ALT Alkaline Phosphatase Troponin I Total Protein Albumin Globulin Urine Color Urine Clarity Urine pH Ur Specific [place] Urine Protein Urine Glucose (UA) Urine Ketones Urine Occult Blood Urine Nitrite Urine Bilirubin Urine Urobilinogen Ur Leukocyte Esterase Urine RBC Urine WBC Ur Squamous Epith Cells Urine Bacteria Urine Mucus [facility] Operations: None Procedures: Cardiac catheterization - CORONARY ANGIOGRAPHY DOMINANCE: Right Dominant LEFT HEART ASSESSMENT Left Ventricular Ejection Fraction: by LV Gram 60 % Normal LV wall motion Normal Left Ventricular systolic function LEFT MAIN: Angiographically normal LEFT ANTERIOR DESCENDING ARTERY: Mild luminal irregularities less than 30% CIRCUMFLEX ARTERY: No significant disease noted RIGHT CORONARY ARTERY: Mild luminal irregularities less than 30% Summary of Care Provided: The patient is a 83 year old M with a past medical history of Alzheimer's disease, hypertension, chronic back pain, left lower 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 He stated the pain lasted approximately 15 minutes and then went away without treatment and he was able to go back to sleep. He also complained of increasing shortness of breath over the previous several months, especially with exertion. Vital signs in the emergency department were temp 97.6, pulse rate 87, blood pressure 90/36, respiratory rate 16 and he was 93% saturated on room air. Blood pressures improved with a fluid bolus. Lab was remarkable for an elevated BUN at 21 with a creatinine of 1.18. The initial troponin was elevated at 0.146 and the second troponin was 0.145. Chest x-ray showed no acute findings. An EKG showed atrial fibrillation with a controlled ventricular response, patient is on metoprolol 50 mg twice daily. There were no suspicious ST or T wave changes. He was admitted to a monitored bed on PCU and cardiology was consulted. He underwent cardiac catheterization on 10/04/2018 and this showed an ejection fraction of 60% with normal left ventricular wall motion. The left main was angiographically normal and the left anterior descending showed only mild luminal irregularities less than 30%. The circumflex artery had no significant disease and the RCA had mild luminal irregularities less than 30%. Dr. Forbes felt the patient had a mild degree of congestive heart failure, possibly secondary to atrial fibrillation and recommended starting him on Lasix. Hydrochlorothiazide was discontinued. He was started on apixaban 5 mg p.o. twice daily for atrial fibrillation for stroke prophylaxis. He was discharged home with prescriptions for Lasix 40 mg daily, Flomax 0.4 mg nightly ( for nocturia and incomplete emptying) and apixaban 5 mg twice daily. He will follow-up with Dr. Ruel Ivey in 5 to 7 days. Alert, cooperative, no apparent distress Poor dentition No JVD and no carotid bruits Lungs-clear to auscultation Heart-irregular rhythm with telemetry showing atrial fibrillation, no rub, no gallop and no murmur. Abdomen-soft, nontender, nondistended, bowel sounds present No peripheral edema This note was generated with [email or web address] software. It may contain incorrect words, spelling, and punctuation that were not noted in checking the note before signing. Patient Problems: Active and Suspected Problems Diastolic CHF (Acute) - Physical Exam Vital Signs Temp Pulse Resp BP Pulse Ox 97.7 F L 77 16 127/76 H 94 10/04/18 13:00 10/04/18 13:00 10/04/18 13:00 10/04/18 13:00 10/04/18 13:00 Oxygen Delivery Method Room Air Weight: 208 lb 5.389 oz Body Mass Index (BMI) 26.7 Orthostatic Vital Signs Start: 10/03/18 17:27 Freq: 0600 Status: Active Protocol: Activity Type Activity Date Activity User E-Sign Co-Sign Detail Recorded Client Recorded Date Recorded By Document 10/04/18 05:34 CM [id number] 10/04/18 05:37 CM 10/04/18 05:34 Orthostatic Vitals Standing -Blood Pressure (90/60-120/80 mm Hg) 129/84 H -Extremity Use Right Arm -Pulse Rate (60-100 beats/min) 98 Sitting -Blood Pressure (90/60-120/80 mm Hg) 136/79 H -Extremity Use Right Arm -Pulse Rate (60-100 beats/min) 105 H Lying -Blood Pressure (90/60-120/80 mm Hg) 147/90 H -Extremity Use Right Arm -Pulse Rate (60-100 beats/min) 74 Intake and Output for Last 24 Hours 10/02/18 10/03/18 10/04/18 23:59 23:59 23:59 Intake Total 1830 / 1830 800 / 800 Output Total 150 / 150 Balance 1830 / 1830 650 / 650 Laboratory Tests Past 24 Hrs 10/03/18 10/04/18 10/04/18 16:20 01:20 05:25 WBC RBC Hgb Hct MCV MCH MCHC RDW RDW Differential Plt Count MPV Immature Gran % (Auto) Neut % (Auto) Lymph % (Auto) [place] % (Auto) Eos % (Auto) Baso % (Auto) Absolute Neuts (auto) Absolute Lymphs (auto) Total Counted PT INR APTT Sodium 145 Potassium 3.8 Chloride 107 Carbon Dioxide 32.0 Anion Gap 6 BUN 16 Creatinine 0.96 Estim Creat Clear Calc 70.16 Est GFR (MDRD) Af Amer 96 Est GFR (MDRD) Non-Af 80 BUN/Creatinine Ratio 16.6 Glucose 91 Calcium 8.5 Total Bilirubin 0.80 Direct Bilirubin 0.17 AST 13 L ALT 17 Alkaline Phosphatase 55 Troponin I 0.126 H Total Protein 5.6 L Albumin 2.9 L Globulin 2.7 Urine Color Yellow Urine Clarity Clear Urine pH 7.0 Ur Specific [place] 1.015 Urine Protein Negative Urine Glucose (UA) Normal Urine Ketones Negative Urine Occult Blood 150 H Urine Nitrite Negative Urine Bilirubin Negative Urine Urobilinogen Normal Ur Leukocyte Esterase Negative Urine RBC 0-5 SEEN Urine WBC 0 SEEN Ur Squamous Epith Cells 0 SEEN Urine Bacteria 0 SEEN Urine Mucus 0 SEEN 10/04/18 10/04/18 05:25 05:25 WBC 4.7 RBC 4.65 Hgb 15.0 Hct 43.9 MCV 94.4 H MCH 32.3 H MCHC 34.2 RDW 12.9 RDW Differential 44.1 H Plt Count 180 MPV 9.8 Immature Gran % (Auto) 0.200 Neut % (Auto) 52.8 Lymph % (Auto) 32.3 [place] % (Auto) 8.0 Eos % (Auto) 5.9 H Baso % (Auto) 0.8 Absolute Neuts (auto) 2.5 Absolute Lymphs (auto) 1.53 Total Counted Not Reportable PT 14.6 INR 1.2 APTT 42.2 H Sodium Potassium Chloride Carbon Dioxide Anion Gap BUN Creatinine Estim Creat Clear Calc Est GFR (MDRD) Af Amer Est GFR (MDRD) Non-Af BUN/Creatinine Ratio Glucose Calcium Total Bilirubin Direct Bilirubin AST ALT Alkaline Phosphatase Troponin I Total Protein Albumin Globulin Urine Color Urine Clarity Urine pH Ur Specific [place] Urine Protein Urine Glucose (UA) Urine Ketones Urine Occult Blood Urine Nitrite Urine Bilirubin Urine Urobilinogen Ur Leukocyte Esterase Urine RBC Urine WBC Ur Squamous Epith Cells Urine Bacteria Urine Mucus Discharge Activity: Return to Normal Activity Call your doctor if your incision/area has: Continuous Slow Oozing, Sudden Increased Bleeding, Increased Redness Call your doctor if you observe: Fever of 101 or Higher, Shortness of breath, Dizziness, Fainting spells, Swelling in the ankles, Chest pain Home Medications: Medications to take at Discharge Aspirin [Aspirin EC] 81 mg PO DAILY 10/03/18 Donepezil HCl [Aricept] 10 mg PO QHS 10/03/18 Finasteride 5 mg PO DAILY 10/03/18 Fluticasone 0.05% [Flonase Nasal [place]] 2 spray NASAL DAILY 10/03/18 Lisinopril 40 mg PO BID 10/03/18 Metoprolol Tartrate [Lopressor (beta vivian)] 50 mg PO BID 10/03/18 Polyethylene Glycol 3350 [Miralax] 17 gm PO DAILY 10/03/18 Ranitidine [Zantac] 150 mg PO QHS 10/03/18 Terazosin HCl 5 mg PO DAILY 10/03/18 cycloBENZAPRine HCl [Flexeril] 10 mg PO BID PRN PRN 10/03/18 Apixaban [Eliquis] 5 mg PO BID #60 tablet 10/04/18 Furosemide [Lasix] 40 mg PO DAILY #30 tablet 10/04/18 Tamsulosin HCl [Flomax] 0.4 mg PO QHS #30 capsule 10/04/18 Following Prescrptions Were Given to Patient: Furosemide [Lasix] 40 mg PO DAILY #30 tablet Tamsulosin HCl [Flomax] 0.4 mg PO QHS #30 capsule Apixaban [Eliquis] 5 mg PO BID #60 tablet Primary Care Physician: Ruel Ivey MD [Primary Care Provider] - Please follow up with your Primary Care Physician in: 5-7 days Please Follow Up With: Elvis Forbes MD When: 4-6 weeks Patient Instructions: Apixaban Oral tablet, What Is Atrial Flutter/Atrial Fibrillation?, Discharge Instructions for Atrial Fibrillation Disposition: Home Minutes spent on discharge:: 35 Patient Condition:: Good Medical Necessity - Tobacco Use Smoking Status: Former smoker Tobacco Use: Non-smoker Meaningful Use Info Meaningful Use Diagnoses (Choose all that apply): None applicable Code Visit Inpatient E&M: 37255 Disch Hosp
--- NOTE | 2018-10-04 14:22 | CASEMGMT ---
Addendum entered by Qiana Orantes 10/04/18 14:26: Call to [facility] and per pharmacist, co-pay for Eliquis is $8.50 at this time. Tomas WALL CM Original Note: Per Dr. Martel, pt with some confusion at times and multiple new meds. CCN referral made after ok from pt/ex- at this time. Call to [facility] to notify of referral, voices understanding. Tomas WALL CM
== END 2018-10-04 14:44 | disposition home or self-care (01) | DRG 286 ==
LOC: ED 10:23 → PCU 10-04 07:45
PROVIDERS: Internal Medicine Cardiovascular Disease; Admitting Provider Internal Medicine; Emergency Provider Emergency Medicine; Family Provider Family Medicine; PCP Family Medicine; Referring Provider Internal Medicine; Visit Provider Internal Medicine
DX: I48.91 Unspecified atrial fibrillation (principal); I50.31 Acute diastolic (congestive) heart failure; I25.110 Atherosclerotic heart disease of native coronary artery with unstable angina pectoris; I11.0 Hypertensive heart disease with heart failure; G30.1 Alzheimer's disease with late onset; F02.80 Dementia in other diseases classified elsewhere, unspecified severity, without behavioral disturbance, psychotic disturbance, mood disturbance, and anxiety; G62.9 Polyneuropathy, unspecified; N40.1 Benign prostatic hyperplasia with lower urinary tract symptoms; R39.14 Feeling of incomplete bladder emptying; R35.1 Nocturia; K21.9 Gastro-esophageal reflux disease without esophagitis; Z79.01 Long term (current) use of anticoagulants; Z79.82 Long term (current) use of aspirin; Z79.899 Other long term (current) drug therapy; Z87.891 Personal history of nicotine dependence; Z87.442 Personal history of urinary calculi
CPT/HCPCS: 36415; 70450; 71045; 80048; 80076; 81001; 83735; 83880; 84443; 84484; 85025; 85610; 85730; 93005; 93306; 93458; 93970; 99152; 99285; C1760; J7030; Q9957; A4216; C1769; Q9967

== ENCOUNTER → 2018-10-12 15:30 | Outpatient (CLI) | payer MEDICARE, OTHER, SELFPAY ==
[2018-10-12 09:37] VITALS: BMI 27.1
--- NOTE | 2018-10-12 15:33 | ADUL_ITS ---
Reason For Study: RT Groin bruit S/P heart cath. Right Velocities RT OPERATOR CONTROL ROOM 90.7 cm/s RT SFA 65.3 cm/s RT Profunda Art 48.2 cm/s RT CFV is patent and compressible. NON-Vascular structure noted superior to RT SFA/Groin area, measuring 2.56 x 0.55 cm. Procedure The exam was diagnostic. Exam performed in department. Comments Lor CABRERA notified at 3:55 pm. Interpretation Summary The right common femoral artery, proximal superficial femoral artery, and proximal profunda femoris artery appear patent, demonstrating normal, pulsatile arterial flow. The right common femoral vein appears patent and compressible. A non-vascular, heterogeneous structure is noted in the right groin, measuring 2.56 cm x 0.55 cm. This probably represents a hematoma. Clinical correlation is advised. Ordering Physician: Lor Ramon Referring Physician: Ruel Ivey Performed By: Joellen Chambers, CHIP, RVT
== END ==
PROVIDERS: Family Provider Family Medicine; PCP Family Medicine; Referring Provider Physician Assistant Medical; Visit Provider Physician Assistant Medical
DX: R09.89 Other specified symptoms and signs involving the circulatory and respiratory systems (principal); S75.002A Unspecified injury of femoral artery, left leg, initial encounter; X58.XXXA Exposure to other specified factors, initial encounter; Y93.9 Activity, unspecified; Y92.9 Unspecified place or not applicable; Y99.9 Unspecified external cause status
CPT/HCPCS: 93926

== ENCOUNTER → 2018-12-07 08:59 | Outpatient (CLI) | payer MEDICARE, OTHER, SELFPAY ==
[2018-10-19 11:19] VITALS: BMI 26.8
[2018-12-07 11:04] LABS: Anion Gap 5 (5-15); BUN 20 mg/dL (7-18); BUN/Creat Ratio 20.3 RATIO (10-20); Calcium,Total 9.1 mg/dL (8.5-10.1); Chloride 102 mmol/L (98-107); Creatinine, Serum 0.99 mg/dL (0.70-1.30); EST Glomerular Filtration Rate 77 mL/min (>60); Est Glom Filt Rate - Afr Amer 94 mL/min (>60); Glucose 112 mg/dL (74-106); Potassium 3.4 mmol/L (3.5-5.1); Sodium Level 138 mmol/L (136-145)
== END ==
PROVIDERS: Family Provider Family Medicine; PCP Family Medicine; Referring Provider Nurse Practitioner Family; Visit Provider Nurse Practitioner Family
DX: I11.0 Hypertensive heart disease with heart failure (principal); I50.30 Unspecified diastolic (congestive) heart failure
CPT/HCPCS: 36415; 80048

== ENCOUNTER 2020-06-07 14:06 | Outpatient (RCR) | payer MEDICARE, SELFPAY ==
[2019-01-24 08:23] VITALS: BMI 26.9
== END 2020-06-07 23:59 ==
LOC: IMMUN 14:06
PROVIDERS: PCP Family Medicine; Referring Provider Family Medicine; Visit Provider Family Medicine
DX: Z23 Encounter for immunization (principal)
CPT/HCPCS: 0011A; 0012A